=== PATIENT | female | born 1995 | race Two or more races ===

== ENCOUNTER 2020-09-11 13:51 | Outpatient (CLI) | payer OTHER | END 2020-09-11 14:00 | disposition home or self-care (01) | LOC: RAD 13:51 | PROVIDERS: ATTEND Internal Medicine | DX: I10 Essential (primary) hypertension (principal); M54.5 Low back pain; Z01.811 Encounter for preprocedural respiratory examination; E03.8 Other specified hypothyroidism; E78.89 Other lipoprotein metabolism disorders; E55.9 Vitamin D deficiency, unspecified; E11.51 Type 2 diabetes mellitus with diabetic peripheral angiopathy without gangrene; G62.89 Other specified polyneuropathies; E11.42 Type 2 diabetes mellitus with diabetic polyneuropathy ==